=== PATIENT | male | born 1945 | race Caucasian/White ===

== ENCOUNTER 2017-12-07 20:55 | Inpatient (IN) | payer OTHER ==
[2017-12-07] MEDS ORDERED: ACETAMINOPHEN 500 MG TAB PO ONE (21:01)
--- NOTE | 2017-12-07 21:54 | EDPHY ---
H & P Stated Complaint: cough since nov. today with fever & cough Time Seen by Provider: 12/07/17 21:53 HPI/ROS: Chief Complaint: Cough, fever HPI: 72-year-old male has been having a cough for the last 2 months which has been associated with fatigue and is also complaining of a 20 lb weight loss. He is associating this with his reflux symptoms which have been waking him up. He is primarily having the cough worse in the morning when he wakes up is bringing up yellowish sputum and occasional streaks of blood only 1st thing in the morning. He also has sick for episode of coughing in the afternoon. No associated shortness of breath. No chest pain. No nausea or vomiting. Patient states for the last day he started having fevers at home. No nausea or vomiting. Does not have a history of similar episodes. Is a former smoker and but quit 10 years ago. No chest pain. No abdominal pain. Has not followed up with primary care physician. ROS: 10 point Review of Systems is negative except as noted in the HPI. PMH: Denies Social History: Former smoking, no alcohol, occasional edible marijuana Family History: non-contributory Physical Exam: Gen: Awake, Alert, No Distress HEENT: Nose: no rhinorrhea Eyes: PERRLA, EOMI Mouth: Moist mucosa Neck: Supple, no JVD Chest: nontender, lungs clear to auscultation Heart: S1, S2 normal, no murmur Abd: Soft, non-tender, no guarding Back: no CVA tenderness, no midline tenderness Ext: no edema, non-tender Skin: no rash Neuro: CN II-XII intact, Sensation grossly intact, Strength 5/5 in bilateral upper and lower extremities - Personal History Current Tetanus/Diphtheria Vaccine: Unsure Current Tetanus Diphtheria and Acellular Pertussis (TDAP): Unsure - Medical/Surgical History Hx Asthma: No Hx Chronic Respiratory Disease: No Hx Diabetes: No Hx Cardiac Disease: No Hx Renal Disease: No Hx Cirrhosis: No Hx Alcoholism: No Hx HIV/AIDS: No Hx Splenectomy or Spleen Trauma: No - Social History Smoking Status: Former smoker Constitutional: Initial Vital Signs Temperature (C) 37.8 C 12/07/17 20:58 Heart Rate 122 H 12/07/17 20:58 Respiratory Rate 16 12/07/17 20:58 Blood Pressure 131/97 H 12/07/17 20:58 O2 Sat (%) 91 L 12/07/17 20:58 O2 Delivery Mode Room Air O2 (L/minute) 2 Allergies/Adverse Reactions: No Known Allergies Allergy (Unverified 12/07/17 21:00) Medical Decision Making - Diagnostics Imaging Results: Imaging Impressions Chest X-Ray 12/07/17 21:33 Impression: Large right suprahilar mass with postobstructive atelectasis/ pneumonia. Imaging: I viewed and interpreted images myself ED Course/Re-evaluation: Chest x-ray shows a large right perihilar mass. Given his history this is very concerning for the likelihood of cancer. He also has a postobstructive pneumonia. I have ordered ceftriaxone and azithromycin. Is satting at 91%. He is not tachypneic. I have discussed with Dr. Barba, hospitalist. He will admit to his service for further care. Will obtain a CT scan of his chest to evaluate his mass. - Data Points Laboratory Results: Laboratory Results 12/07/17 21:54 12/07/17 21:54 12/07/17 12/07/17 21:54 21:54 WBC 12.32 10^3/uL H 10^3/uL (3.80-9.50) RBC 4.84 10^6/uL 10^6/uL (4.40-6.38) Hgb 14.4 g/dL g/dL (13.7-17.5) Hct 42.3 % % (40.0-51.0) MCV 87.4 fL fL (81.5-99.8) MCH 29.8 pg pg (27.9-34.1) MCHC 34.0 g/dL g/dL (32.4-36.7) RDW 13.8 % % (11.5-15.2) Plt Count 339 10^3/uL 10^3/uL (150-400) MPV 9.6 fL fL (8.7-11.7) Neut % (Auto) 77.6 % H % (39.3-74.2) Lymph % (Auto) 14.0 % L % (15.0-45.0) [place] % (Auto) 7.5 % % (4.5-13.0) Eos % (Auto) 0.1 % L % (0.6-7.6) Baso % (Auto) 0.4 % % (0.3-1.7) Nucleat RBC Rel Count 0.0 % % (0.0-0.2) Absolute Neuts (auto) 9.57 10^3/uL H 10^3/uL (1.70-6.50) Absolute Lymphs (auto) 1.72 10^3/uL 10^3/uL (1.00-3.00) Absolute Monos (auto) 0.92 10^3/uL H 10^3/uL (0.30-0.80) Absolute Eos (auto) 0.01 10^3/uL L 10^3/uL (0.03-0.40) Absolute Basos (auto) 0.05 10^3/uL 10^3/uL (0.02-0.10) Absolute Nucleated RBC 0.00 10^3/uL 10^3/uL (0-0.01) Immature Gran % 0.4 % % (0.0-1.1) Immature Gran # 0.05 10^3/uL 10^3/uL (0.00-0.10) Sodium 134 mEq/L mEq/L (134-144) Potassium 3.9 mEq/L mEq/L (3.5-5.2) Chloride 103 mEq/L mEq/L (97-110) Carbon Dioxide 21 mEq/l L mEq/l (22-31) Anion Gap 10 mEq/L mEq/L (8-16) BUN 9 mg/dL mg/dL (7-23) Creatinine 1.0 mg/dL mg/dL (0.7-1.3) Estimated GFR > 60 Glucose 104 mg/dL H mg/dL (70-100) Calcium 9.6 mg/dL mg/dL (8.5-10.4) Medications Given: Discontinued Medications Acetaminophen (Tylenol) 1,000 mg PO EDNOW ONE Stop: 12/07/17 21:02 Last Admin: 12/07/17 21:03 Dose: 1,000 mg Sodium Chloride (Ns) 1,000 mls @ 0 mls/hr IV ONCE ONE; Wide Open PRN Reason: Protocol Stop: 12/07/17 22:07 Last Admin: 12/07/17 22:16 Dose: 1,000 mls Departure - Departure Disposition: [facility] Inpatient Acute Clinical Impression: Pneumonia, Mass in chest Condition: Fair Referrals: NONE *PRIMARY CARE P,. [Primary Care Provider] - As per Instructions
[2017-12-07] MEDS ORDERED: NS 1,000 ML IV ONE (22:06)
[2017-12-07 22:16] LABS: PLATELET COUNT 339 10^3/uL (150-400)
[2017-12-07] MEDS ORDERED: AZITHROMYCIN 250 MG TAB PO ONE (22:39)
[2017-12-07] MEDS ORDERED: IOPAMIDOL (ISOVUE-300) 100 ML BTL ONE (22:44)
[2017-12-07] MEDS ORDERED: ACETAMINOPHEN 325 MG TAB PO PRN (22:54)
[2017-12-07] MEDS ORDERED: ONDANSETRON DISINTEGRATING 4 MG TAB PO PRN (22:54)
[2017-12-07] MEDS ORDERED: ONDANSETRON 4 MG/2 ML VIAL IVP PRN (22:54)
[2017-12-07] MEDS ORDERED: ALBUTEROL 3 ML DEYVIAL IH PRN (22:54)
[2017-12-07] MEDS ORDERED: oxyCODONE IR 5 MG TAB PO PRN (22:54)
--- NOTE | 2017-12-08 04:48 | PDGENHP ---
History and Physical - Chief Complaint Cough - History of Present Illness 72 yo M w/ 25+ year hx of tobacco use presents with weight loss, night sweats, hemoptysis, and fatigue. Patient has been experiencing this constellation of symptoms for about 3 months. He reports losing about 20 lbs in the last 3 months. He finally came to the ED when his coughing became very severe and began to be productive of blood as well. Evaluation in the ED revealed a large R -sided pulmonary mass with likely post-obstructive pneumonia. He was admitted for treatment and further diagnostic work-up. History Information - Allergies/Home Medication List Allergies/Adverse Reactions: No Known Allergies Allergy (Unverified 12/07/17 21:00) I have personally reviewed and updated: family history, medical history - Past Medical History no pertinent PMH - Surgical History Reports: no pertinent surgical hx - Family History Additional family history: Asked, denies - Social History Smoking Status: Former smoker Review of Systems Review of Systems: ROS: 10pt was reviewed & negative except for what was stated in HPI & below Physical Exam Physical Exam: Temp Pulse Resp BP Pulse Ox 36.8 C 100 18 122/62 H 92 12/08/17 03:14 12/08/17 03:14 12/08/17 03:14 12/08/17 03:14 12/08/17 03:14 O2 (L/minute) 3 Constitutional: no apparent distress, not in pain Eyes: PERRL, EOMI Ears, Nose, Mouth, Throat: moist mucous membranes, no oral mucosal ulcers Cardiovascular: regular rate and rhythym, no murmur, rub, or gallop Respiratory: no respiratory distress, rhonchi (R middle/upper lobe) Gastrointestinal: normoactive bowel sounds, soft, non-tender abdomen Skin: warm, normal color Musculoskeletal: full muscle strength, no muscle tenderness Neurologic: AAOx3, CN II-XII Intact Psychiatric: interacting appropriately, not anxious Lab Data & Imaging Review 12/07/17 21:54 12/07/17 21:54 WBC 12.32 10^3/uL (3.80-9.50) H 12/07/17 21:54 RBC 4.84 10^6/uL (4.40-6.38) 12/07/17 21:54 Hgb 14.4 g/dL (13.7-17.5) 12/07/17 21:54 Hct 42.3 % (40.0-51.0) 12/07/17 21:54 MCV 87.4 fL (81.5-99.8) 12/07/17 21:54 MCH 29.8 pg (27.9-34.1) 12/07/17 21:54 MCHC 34.0 g/dL (32.4-36.7) 12/07/17 21:54 RDW 13.8 % (11.5-15.2) 12/07/17 21:54 Plt Count 339 10^3/uL (150-400) 12/07/17 21:54 MPV 9.6 fL (8.7-11.7) 12/07/17 21:54 Neut % (Auto) 77.6 % (39.3-74.2) H 12/07/17 21:54 Lymph % (Auto) 14.0 % (15.0-45.0) L 12/07/17 21:54 [place] % (Auto) 7.5 % (4.5-13.0) 12/07/17 21:54 Eos % (Auto) 0.1 % (0.6-7.6) L 12/07/17 21:54 Baso % (Auto) 0.4 % (0.3-1.7) 12/07/17 21:54 Nucleat RBC Rel Count 0.0 % (0.0-0.2) 12/07/17 21:54 Absolute Neuts (auto) 9.57 10^3/uL (1.70-6.50) H 12/07/17 21:54 Absolute Lymphs (auto) 1.72 10^3/uL (1.00-3.00) 12/07/17 21:54 Absolute Monos (auto) 0.92 10^3/uL (0.30-0.80) H 12/07/17 21:54 Absolute Eos (auto) 0.01 10^3/uL (0.03-0.40) L 12/07/17 21:54 Absolute Basos (auto) 0.05 10^3/uL (0.02-0.10) 12/07/17 21:54 Absolute Nucleated RBC 0.00 10^3/uL (0-0.01) 12/07/17 21:54 Immature Gran % 0.4 % (0.0-1.1) 12/07/17 21:54 Immature Gran # 0.05 10^3/uL (0.00-0.10) 12/07/17 21:54 Sodium 134 mEq/L (134-144) 12/07/17 21:54 Potassium 3.9 mEq/L (3.5-5.2) 12/07/17 21:54 Chloride 103 mEq/L (97-110) 12/07/17 21:54 Carbon Dioxide 21 mEq/l (22-31) L 12/07/17 21:54 Anion Gap 10 mEq/L (8-16) 12/07/17 21:54 BUN 9 mg/dL (7-23) 12/07/17 21:54 Creatinine 1.0 mg/dL (0.7-1.3) 12/07/17 21:54 Estimated GFR > 60 12/07/17 21:54 Glucose 104 mg/dL (70-100) H 12/07/17 21:54 Calcium 9.6 mg/dL (8.5-10.4) 12/07/17 21:54 Imaging Review: Imaging Impressions Chest X-Ray 12/07/17 21:33 Impression: Large right suprahilar mass with postobstructive atelectasis/ pneumonia. Chest CT 12/07/17 22:42 Impression: 1. Large central right hilar tumor and adenopathy causing occlusions and severe stenoses of bronchi, pulmonary artery, pulmonary vein, superior vena cava, and azygos vein. 2. Postobstructive atelectasis/pneumonitis involving much of the right upper lobe. Assessment & Plan Assessment: 72 yo M w/ significant tobacco hx presents with lung mass and likely pneumonia. Plan: 1. Lung mass - Large central right hilar tumor and adenopathy causing occlusions and severe stenoses of bronchi, pulmonary artery, pulmonary vein, superior vena cava, and azygos vein. Noting symptoms of weight loss, night sweats, and hemoptysis this most likely represents malignancy in the setting of significant tobacco history. - Will consult oncology and IR to consider IR biopsy vs. endobronchial biopsy from Pulm and additional staging measures - Maintain NPO in case biopsy can be done today 2. Postobstructive pneumonia - Postobstructive atelectasis/pneumonitis involving much of the right upper lobe described on CT. No evidence of sepsis physiology at this time. - CTX/Azithro for CAP coverage - Blood cultures ordered 3. AHRF - 2/2 malignancy and pneumonia. IS, wean O2 as able. Diet - NPO pending possible biopsy Code - Full Ppx - SCDs for now noting possible biopsy, indicated for LMWH thereafter noting likely malignancy Dispo - Admit to observation status
[2017-12-08 05:23] LABS: PLATELET COUNT 290 10^3/uL (150-400)
[2017-12-08] MEDS ORDERED: AZITHROMYCIN IV 250 MG in D5W 250 ML IV SCH (09:00)
[2017-12-08] MEDS: AZITHROMYCIN 250 MG TAB PO SCH (09:32)
--- NOTE | 2017-12-08 14:49 | ASMTCMCOM ---
CM Note CM Note Notes: Pt admitted with PNA and chest mass. Long hx of smoking. Pt has Medicare Part A only. Discussed this with him and also called his son Willian [phone] who is his MDPOA. Provided Medicare info re late enrollment for Part B benefits and encouraged him to talk with his daughter (a agricultural extension officer) and his son. Pt never signed up for Part B or D and will incur penalties when he does. He has limited income and is a which son will pursue. [employer] saw pt and he is over income for Medicaid. Pt to have bx. CM will follow for any d/c needs. Date Signed: 12/08/2017 02:48 PM Electronically Signed By:NOÉ Yuen
--- NOTE | 2017-12-08 15:58 | HOSPPROG ---
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
--- NOTE | 2017-12-08 16:04 | HOSPPROG ---
Hospitalist Progress Note Assessment/Plan: DIAGNOSES: -acute hypoxemic respiratory failure, multifactorial -suspect postobstructive pneumonia as cause of fever and worsening respiratory symptoms -large right perihilar mass with adenopathy, with compression of airways and central vascular structures contributing to his respiratory symptoms -strongly suspect primary lung malignancy in this smoker -suspect likely also has COPD which could be contributing to his respiratory symptoms PLANS: -continue current antibiotics -I reviewed in detail with Dr. Sam Al, and he has contacted Dr. Nadir Alvarenga. Dr. Alvarenga will assess the patient and consider bronchoscopic assessment which I think would be very successful in helpful for this patient in terms of getting to diagnosis. -bronchodilators as needed -further planning for treatment once we have tissue samples and results; this could possibly be a small cell carcinoma as it is central -discuss all the above with the patient and his at the bedside in great detail, answered all their questions to the stent can at this time SUBJECTIVE: Patient feels notably better with less shortness of breath and less cough but he has been lying in bed the whole day. 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: Exam: alert oriented skin warm dry color ok resps not labored lungs diminished but otherwise clear BSs heart regular abd soft nondistended nontender, bowel sounds present limbs warm, no edema iv site ok Objective: Vital Signs Temp Pulse Resp BP Pulse Ox 36.9 C 95 18 111/65 96 12/08/17 15:35 12/08/17 15:35 12/08/17 15:35 12/08/17 15:35 12/08/17 15:35 Laboratory Results 12/08/17 05:00 12/08/17 05:00 12/07/17 12/08/17 12/09/17 06:59 06:59 06:59 Intake Total 1999 Balance 1999 - Time Spent With Patient Time Spent with Patient: greater than 35 minutes Time Spent with Patient: Greater than 35 minutes spent on this patients care, greater than 50% of time spent counseling, educating, and coordinating care regarding the above mentioned plan. ICD10 Worksheet Patient Problems: Problems Problem Status Onset Mass in chest Acute Pneumonia Acute
--- NOTE | 2017-12-08 17:47 | GCON ---
[f rep st] CONSULTATION MEDICAL ONCOLOGY CONSULTATION REPORT REASON FOR CONSULTATION: This is a 72-year-old male just admitted to [facility] toda y with a right suprahilar mass, consistent with a malignancy. He has no history of malignancy prior t o this admission. HISTORY OF PRESENT ILLNESS: The patient is a 72-year-old male with a long history of tobacco use, wh o has noted 3 months of cough, night sweats, sputum production, and more recently, blood-tinged sputu m with pleuritic-type chest pain with deep inspiration. He came to the emergency department earlier t betty, and based upon a chest x-ray, followed by CT scan, he has now been admitted for further workup for what appears to be a presumptive primary intrathoracic malignancy, primary bronchogenic lung carc inoma versus lymphoma. PAST MEDICAL HISTORY: Patient reports up until about 3 months ago, he was in his usual state of heal th. He has no prior medical history. MEDICATIONS: He is on no chronic medications. FAMILY HISTORY: Noncontributory. PRIOR SURGICAL HISTORY: Noncontributory. ALLERGIES: None known. SOCIAL HISTORY: The patient has lived in [place] since 1968. 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 He has no known occupational exposures. Tobacco use: Noted above. Alcohol intake: Not significant. He i s not . He spends time with his girlfriend, who lives in the [place] area. He lives in [place] himself. He reports ongoing fatigue, malaise, and by review of systems, night sweats, as noted above. REVIEW OF SYSTEMS: CONSTITUTIONAL: See above. TILE SPRAYER: No active focal symptoms. RESPIRATORY: See above. CARDIAC: Noncontributory. GI: Noncontributory. : Noncontributory. INFECTIOUS: See above. CUTANEOUS : Noncontributory. SKELETAL: Noncontributory. HEMATOLOGIC: Noncontributory. ENDOCRINE: Noncontributor y. EXAM: GENERAL: This is a pleasant late middle-aged white male, in no acute distress. He was seen fla t in bed, comfortable, and with his girlfriend at the bedside. He is alert, conversant, and cognitive ly intact. VITAL SIGNS: Stable. HEENT: Exam shows no facial asymmetry. Sclerae anicteric. Cranial ner ves intact. No oral lesions. PERRLA, EOMI. NECK: Without lymphadenopathy. LUNGS: Lung love are rela tively clear. No consolidation or adventitious sounds. CARDIAC: Exam shows RSR. No extra heart sounds . PMI not displaced. ABDOMEN: Soft, without mass, tenderness, or HSM. EXTREMITIES: No peripheral lex a. Reflexes normal. SKIN: Intact. IMAGING: CT scan of the chest, performed today, shows a large central right hilar tumor and adenopat hy with occlusion and severe stenosis of right-sided bronchus, pulmonary artery, pulmonary vein, supe rior vena cava, and azygos vein. There is a post-obstructive atelectasis and pneumonitis involving a portion of the right upper lobe. LAB DATA: White count 14.12, hemoglobin 13.2, platelet count 290. Sodium 138, BUN 8, creatinine 0.8, glucose 100, calcium 8.8, CO2 21. IMPRESSION: Right suprahilar and hilar mass with obstructive right upper lobe pneumonitis in a patie nt symptomatic and with history of tobacco usage. I am suspicious that this patient has a primary bronchogenic lung neoplasm or lymphoma, and based upo n imaging, I suggest Pulmonary consultation to consider bronchoscopy for transbronchial and endobronc hial biopsy and cytology. I have reviewed this with the patient today and his girlfriend, indicating our clinical suspicion of a primary malignancy. We will order additional laboratory studies and MRI of brain to continue staging workup. I will contact Pulmonary Service for a pulmonary consult. Our service will follow as an inpatient and an outpatient. Thank you for allowing our service to evaluate this gentleman, and plan to participate in staging wor kup, treatment advice, and treatment administration. /[id number]/MODL
--- NOTE | 2017-12-08 18:48 | GCON ---
[f rep st] CONSULTATION PULMONARY CONSULTATION DATE OF CONSULTATION: 12/08/2017 REASON FOR CONSULTATION: Lung mass. HISTORY: The patient is a very pleasant 72-year-old gentleman who has previously been healthy. He i s a long-time smoker, having smoked from the age of approximately 15 to 60, one pack of cigarettes pe r day on average. Over the last 3 months he has had increasing pulmonary symptoms associated with co ugh, mucus, hemoptysis, chest pain and tightness, progressive weakness and fevers, chills, and sweats . He presented to the hospital yesterday secondary to coughing episodes that resulted in lightheaded ness. Workup has revealed a large right-sided mass with bronchial compression of the right mainstem bronchus. A postobstructive infiltrate appears to be present. He has largely been healthy in the past. He has avoided physicians. He is on no medications, has no known medical problems. PAST MEDICAL HISTORY: Negative, as outlined above. SOCIAL HISTORY: The patient has not smoked for 10 to 15 years. Significant alcohol is negative. He has a son who is an oncologic surgeon in the . He is the patient's medical power of attorne y. 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 FAMILY HISTORY: Noncontributory/negative. REVIEW OF SYSTEMS: 10-point review of systems is negative except as outlined above. He denies previ ously known pulmonary disease, cardiac disease, thromboembolic disease, kidney problems, etc. PHYSICAL EXAMINATION: GENERAL: The patient is lying relatively comfortably in bed, on his right zion e. He appears weak. VITAL SIGNS: Blood pressure is 111/65, heart rate 95 and regular, on 3 L satur ations are 98%, respiratory rate is 18, he is afebrile. HEENT: Unremarkable for lymphadenopathy or thyromegaly. LYMPHATIC: There are no cervical nodes, no subclavicular nodes present. CHEST: Clear . There are no rhonchi currently. Breath sounds are somewhat coarse on the right side. However, th ere is no danial stridor, no wheezes and no significant rales. HEART: Regular in rate and rhythm. T here is a soft systolic murmur. No gallops. ABDOMEN: Soft, nontender. There is no obvious organom egaly. EXTREMITIES: Without edema, cords, or tenderness. NEUROLOGIC: Intact. RADIOLOGIC STUDIES: As outlined above. His CT scan of the chest shows a right hilar tumor that is q uite large, extending superiorly. There is associated mediastinal and hilar adenopathy with compress ion of the right mainstem bronchi and distal proximal bronchi. There is also compression of the pulm onary artery vein and superior vena cava. There is postobstructive atelectasis and infiltrate relate d to the right upper lobe. LABORATORY: White blood cell count is 14,000, hematocrit 40. Platelets are normal. There is a shif t to the left. Basic metabolic panel is within normal limits. ASSESSMENT: 1. Large right-sided perihilar lung mass, as described above. This is certainly malignant and compr essing the right mainstem bronchi and more distal proximal bronchial segments. Postobstructive pneum onia appears to be present. Symptoms have been present for at least 3 months and progressive, both l ocal pulmonary symptoms, as well as constitutional symptoms. A small cell carcinoma is certainly pos sible, but other primary lung malignancies related to smoking are also in the differential. A tissue diagnosis is needed, and bronchoscopy will be performed tomorrow. 2. Postobstructive pneumonia. 3. History of tobacco abuse in the past. PLAN AND RECOMMENDATIONS: Bronchoscopy will be performed tomorrow. PT and PTT will be obtained in t he a.m. Clear liquid breakfast will be allowed. He will be made n.p.o. after this. Bronchoscopy wi ll be performed in the mid afternoon. Appropriate samples will be obtained. Lovenox will be held. Antibiotics will be continued. Further plans and recommendations will be made based on the results of the bronchoscopy and his progr ess over the next 24 to 48 hours. /[id number]/MODL
[2017-12-08] MEDS: ZOLPIDEM TARTRATE 5 MG TAB PO PRN (20:57)
[2017-12-09] MEDS: AZITHROMYCIN 250 MG TAB PO SCH (09:23)
[2017-12-09] MEDS ORDERED: GADOBUTROL 10 ML VIAL IVP ONE (12:06)
--- NOTE | 2017-12-09 13:25 | SOAPPROG ---
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 Plans for Bronchoscopy this afternoon noted and D/W patient. He acknowledged that we expect to confirm malignancy with W/U. Await official MRI brain findings. May have tissue diagnosis in next 1-2 days. Plan: See above discussion. Bronchoscopy this afternoon. 12/09/17 13:25 Subjective: Has had no more hemoptysis with improved resp. status. Slept well. No GI distress with meals last PM. Objective: Afebrile, VSS as noted here: in NAD, alert and talkative, flat in bed without resp. distress HEENT- anicteric, no oral lesions Neck- supple Chest- clear anteriorly/posteriorly CVS- RSR, no extra HS ABD- soft, NT no mass or HSM EXT- no edema Imaging: MRI brain done today- to my review no mets/bleed/mass Vital Signs Temp Pulse Resp BP Pulse Ox 37.1 C 96 16 92/66 L 97 12/09/17 09:41 12/09/17 09:41 12/09/17 09:41 12/09/17 09:41 12/09/17 09:41 12/08/17 12/09/17 12/10/17 05:59 05:59 05:59 Intake Total 800 Balance 800 ICD10 Worksheet Patient Problems: Problems Problem Status Onset Mass in chest Acute Pneumonia Acute
--- NOTE | 2017-12-09 13:35 | PDMN ---
Medical Necessity Medical necessity: : change to IP; los>2mn for acute hypoxemic resp failure, pna , large R perihilar mass w/ adenopathy, and likely COPD; requires continued abx , pulm consult for possible bronch, and initiation of IP chemo; per order and progress note 12/08/17
[2017-12-09] MEDS ORDERED: ALBUTEROL 3 ML DEYVIAL ONE (13:46)
[2017-12-09] MEDS ORDERED: LIDOCAINE 1% 300 MG/30 ML SDV ONE (13:47)
[2017-12-09] MEDS ORDERED: LIDOCAINE 2% JELLY 5 ML TUBE ONE (13:47)
[2017-12-09] MEDS ORDERED: LIDOCAINE HCL 4% TOPICAL SOLN 50ML ONE (13:47)
[2017-12-09] MEDS ORDERED: MIDAZOLAM 2 MG/2 ML VIAL ONE (14:13)
[2017-12-09] MEDS ORDERED: fentaNYL 100 MCG/2 ML INJ ONE ×2 (14:14→14:54)
[2017-12-09] MEDS ORDERED: BENZOCAINE UNIT DOSE SPRAY HURRICAINE MM ONE (14:31)
[2017-12-09] MEDS ORDERED: ALBUTEROL 3 ML DEYVIAL IH ONE (14:40)
--- NOTE | 2017-12-09 14:42 | PDPROPOC ---
Sedation Plan of Care Sedation Plan of Care: vital signs stable, mental status noted, patient educated of risks, benefits, alternatives, patient can tolerate sedation ASA Classification: ASA 2 Planned drugs: fentanyl, midazolam Mallampati Score: Class 2 Mallampati Reference Image: Patient passed 3-3-2 rule?: Yes
[2017-12-09] MEDS ORDERED: BENZOCAINE 57 G CAN HURRICAINE MM ONE (14:45)
[2017-12-09] MEDS ORDERED: LIDOCAINE HCL 4% TOPICAL SOLN 50ML TP ONE (14:45)
[2017-12-09] MEDS ORDERED: LIDOCAINE 2% JELLY 5 ML TUBE TP ONE (14:45)
[2017-12-09] MEDS ORDERED: LIDOCAINE 1% 300 MG/30 ML SDV MISC ONE (14:45)
[2017-12-09] MEDS ORDERED: MIDAZOLAM 2 MG/2 ML VIAL IVP ONE (14:50)
[2017-12-09] MEDS ORDERED: fentaNYL 100 MCG/2 ML INJ IVP ONE (14:50)
--- NOTE | 2017-12-09 17:50 | HOSPPROG ---
Hospitalist Progress Note Assessment/Plan: DIAGNOSES: -acute hypoxemic respiratory failure, multifactorial -suspect postobstructive pneumonia as cause of fever and at least part of his worsening respiratory symptoms -large right perihilar mass with adenopathy, with compression of airways and central vascular structures contributing to his respiratory symptoms -strongly suspect primary lung malignancy in this smoker -sinus tachycardia, unclear why he is so tachycardic at this time the does not appear to be septic -I reviewed his CT images again today and did not see any evidence of pulmonary embolism, but wonder if his mass is causing enough pulmonary hemodynamic and blood flow issues to contribute to tachycardia and dyspnea as it is very large in probably compressing central vessels by appearance -suspect likely also has COPD which could be contributing to his respiratory symptoms PLANS: -continue current antibiotics -bronchodilators as needed -bronchoscopy today with Dr. Alvarenga -further planning for treatment once we have tissue samples and results; this could possibly be a small cell carcinoma as it is central SUBJECTIVE: Patient feels notably better with less shortness of breath and less cough but he has been lying in bed the whole day. 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
[2017-12-10] MEDS: ZOLPIDEM TARTRATE 5 MG TAB PO PRN ×2 (00:04→20:59)
--- NOTE | 2017-12-10 04:56 | GPN ---
[f rep st] PROCEDURE NOTE PROCEDURE PERFORMED: Bronchoscopy. INDICATION: Large right perihilar mass with evidence of possible obstructive pneumonia. PROCEDURE NOTE: The procedure was performed in the endoscopy unit. Informed consent was obtained fr om the patient. Appropriate time-out was performed. N95 masks were worn. Topical anesthesia of the oropharynx included a small amount of Hurricaine spray and approximately 5 cc of 1% lidocaine. Intr avenous conscious sedation included 125 mcg fentanyl and 4 mg of Versed. Approximately 20 mL of 1% l idocaine was used for topical anesthesia of the tracheobronchial tree. Epinephrine, 1:10,000, approx imately 8 cc was given incrementally throughout the procedure to prevent or treat mild bleeding/oozin g. The fiberoptic bronchoscope was passed via bite block orally into the larynx. The vocal cords were i dentified. They appeared to move normally with cough and phonation. The bronchoscope was then advan cindy into the trachea and into the lower tracheobronchial tree bilaterally. The airways were generall y erythematous. The left side was normal. The right side was distinctly abnormal with narrowing to the point of almost total occlusion of the right upper lobe bronchus. Abnormal tissue was present in this location. The bronchus intermedius was also narrowed but the lower lobe appeared normal as did the middle lobe. Abnormal mucosa with erythema and edema extended down into the bronchus intermediu s. Washes, brushes and biopsies were taken from the right upper lobe. The patient tolerated procedure well. There were no complications. Vital signs and oxygen saturatio ns throughout the procedure remained stable. The patient was on supplemental oxygen throughout. IMPRESSION: Abnormal tissue almost totally occluding the right upper lobe consistent with malignancy . Appropriate samples were obtained. Abnormal findings continued down and involved the bronchus int ermedius. The lower trachea was also erythematous and edematous. /[id number]/MODL
[2017-12-10] MEDS: AZITHROMYCIN 250 MG TAB PO SCH (09:56)
--- NOTE | 2017-12-10 15:51 | ASMTCMCOM ---
CM Note CM Note Notes: Pt has a lung mass suspicious for ca, which was biopsied yesterday. [facility] It is unclearif pt will have other DC needs. CM to follow, Date Signed: 12/10/2017 03:51 PM Electronically Signed By:Indigo Mandujano LCSW
--- NOTE | 2017-12-10 18:29 | HOSPPROG ---
Hospitalist Progress Note Assessment/Plan: DIAGNOSES: -acute hypoxemic respiratory failure, multifactorial -suspect postobstructive pneumonia as cause of fever and at least part of his worsening respiratory symptoms -large right perihilar mass with adenopathy, with compression of airways and central vascular structures contributing to his respiratory symptoms -malignancy confirmed on bronchoscopy with pathology pending, appears to likely be small cell cancer -sinus tachycardia, unclear why he is so tachycardic at this time the does not appear to be septic -I reviewed his CT images and did not see any evidence of pulmonary embolism , but wonder if his mass is causing enough pulmonary hemodynamic and blood flow issues to contribute to tachycardia and dyspnea as it is very large in probably compressing central vessels by appearance -suspect likely also has COPD which could be contributing to his respiratory symptoms PLANS: -continue current antibiotics -bronchodilators as needed -further planning for treatment once we have tissue samples and results; this could possibly be a small cell carcinoma as it is central I reviewed in detail today with Dr. Al and Dr. Alvarenga and the pathologist's. Total visit time with care coordination greater than 35 min SUBJECTIVE: Patient feels notably better with less shortness of breath and less cough but he has been lying in bed the whole day. 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 Nadir Alvarenga, there was a very large endobronchial lesion which was biopsied. I reviewed the preliminary report from the pathologist with the 2 pathologist reading his study. There is some crush artifact but it appears likely that this will be a small cell cancer which we anticipated. Special stains are pending and are expected to confirm the does or does not have small cell disease. Objective: Vital Signs Temp Pulse Resp BP Pulse Ox 36.8 C 93 14 111/63 92 12/10/17 16:57 12/10/17 16:57 12/10/17 16:57 12/10/17 16:57 12/10/17 16:57 Microbiology 12/09/17 14:50 Gram Stain - Final Lung Right Upper Lobe - Bronchial Washings Laboratory Results 12/10/17 05:07 12/10/17 05:07 12/09/17 12/10/17 12/11/17 06:59 06:59 06:59 Intake Total 800 1200 300 Balance 800 1200 300 - Time Spent With Patient Time Spent with Patient: greater than 35 minutes Time Spent with Patient: Greater than 35 minutes spent on this patients care, greater than 50% of time spent counseling, educating, and coordinating care regarding the above mentioned plan. ICD10 Worksheet Patient Problems: Problems Problem Status Onset Mass in chest Acute Pneumonia Acute
[2017-12-11 04:33] VITALS: RESP 16
[2017-12-11 08:43] VITALS: BP 103/70; PULSE 89; TEMP 98.1; O2SAT 94
[2017-12-11] MEDS: AZITHROMYCIN 250 MG TAB PO SCH (08:54)
--- NOTE | 2017-12-11 14:50 | SOAPPROG ---
SOAP Progress Note Assessment/Plan: Assessment: 1.) Small Cell Lung Carcinoma, presenting with R suprahilar mass with post obstructive consolidation and mild SVC symptoms in shelter tobacco user. I discussed the diagnosis and gave Collin written information about this diagnosis and first line Tx with the standard regimen: Carboplatin, Day 1 and Etoposide Days 1-3 every 1 days. Plan: 1.) SCLC: I have provided the diagnosis, written literature about SCLC from [facility] and advised tx with Carboplatin/Etoposide in a standard 21 day regimen. 2.) Collin states he wants to go home to attend to other issues and will delay Tx until next week. I have provided him with Dr. Sunny Campoverde's card to give him the option of Tx here, where his girlfriend lives or in [place], with Dr. Tommy Florian's name and office phone # for Tx at the [facility] office if he chooses Tx. at that location. 3.) Anticipate discharge today. See above follow up arrangements. 12/11/17 14:43 Subjective: Still with ongoing cough. No other distressing sx. Feels well enough to go home. Objective: Pt sitting up in chair, looks comfortable and in no Resp. Distress in conversation. HEENT- anicteric, no oral lesions Neck- supple, no JVD Chest- minimal rhonchi RUL CVS- RSR, no extra HS ABD- soft, NT, BS+ EXT- no edema, skin intact Labs: RUL biopsy + for Small Cell Lung Cancer Vital Signs Temp Pulse Resp BP Pulse Ox 36.7 C 89 16 103/70 94 12/11/17 08:43 12/11/17 08:43 12/11/17 08:43 12/11/17 08:43 12/11/17 08:43 Microbiology 12/09/17 14:50 Gram Stain - Final Lung Right Upper Lobe - Bronchial Washings Bronchial Washings Culture - Final Laboratory Results 12/10/17 05:07 12/10/17 05:07 12/10/17 12/11/17 12/12/17 05:59 05:59 05:59 Intake Total 1200 800 Balance 1200 800 ICD10 Worksheet Patient Problems: Problems Problem Status Onset Mass in chest Acute Pneumonia Acute
--- NOTE | 2017-12-11 16:42 | ASDISCHSUM ---
Discharge Information Plan Status: Medically Cleared to Leave: Discharge Date: CM D/C Disposition: ADT D/C Disposition:Home, Routine, Self-Care Projected Discharge Date: Transportation at D/C: Discharge Delay Reason: Follow-Up Date: Discharge Slot: Final Diagnosis: Placement Information Patient Contact Information Contact Name:PEDROVIVIENNE Relationship:Friend Address: Work Phone: City: [facility] Phone: State/Zip Code: Email: Financial Information Financial Class: Primary Plan Desc:MEDICARE INPATIENT Primary Plan Number:[id number] Secondary Plan Desc: Secondary Plan Number: Assessment Information [facility] CM Progress Note CM Note CM Note Notes: Pt admitted with PNA and chest mass. Long hx of smoking. Pt has Medicare Part A only. Discussed this with him and also called his son Willian [phone] who is his MDPOA. Provided Medicare info re late enrollment for Part B benefits and encouraged him to talk with his daughter (a rope rider) and his son. Pt never signed up for Part B or D and will incur penalties when he does. He has limited income and is a which son will pursue. [employer] saw pt and he is over income for Medicaid. Pt to have bx. CM will follow for any d/c needs. Date Signed: 12/08/2017 02:48 PM Electronically Signed By:NOÉ Yuen [facility] CM Progress Note CM Note CM Note Notes: Pt has a lung mass suspicious for ca, which was biopsied yesterday. [facility] It is unclearif pt will have other DC needs. CM to follow, Date Signed: 12/10/2017 03:51 PM Electronically Signed By:Indigo Mandujano LCSW [facility] CM Progress Note CM Note CM Note Notes: Pt's pathology came back as small cell lung cancer. Dr Al is recommending standard treatment. Dr Al [facility] [place] [facility] Dr Florian in [place]. Pt has no DC needs. Date Signed: 12/11/2017 04:41 PM Electronically Signed By:Indigo Mandujano LCSW Intervention Information Intervention Type:*Incorrect Registration Date of Service:12/08/2017 10:44 AM Patient Type:Inpatient Staff Member:SARAHY Kurtz Courtney Hours: Discipline: Severity: Comment: Intervention Type:*BANG-Signed Date of Service:12/08/2017 02:08 PM Patient Type:Observation Staff Member:Magy Willard Hours: Discipline: Severity: Comment: Intervention Type:*IM-Signed Date of Service:12/11/2017 03:58 PM Patient Type:Inpatient Staff Member:Magy Willard Hours: Discipline: Severity: Comment:
--- NOTE | 2017-12-11 19:05 | PDDCSUM ---
Discharge Summary Discharge Summary: DISCHARGE DIAGNOSES: -acute hypoxemic respiratory failure, multifactorial -suspect postobstructive pneumonia as cause of fever and at least part of his worsening respiratory symptoms -new diagnosis of small cell lung carcinoma with large right perihilar mass with adenopathy -suspect likely also has COPD which could be contributing to his respiratory symptoms CONSULTANTS: Dr. Sam Alvarenga PROCEDURES: CT scan of chest Bronchoscopy with bronchoscopic by a PC of lung mass HOSPITAL COURSE SUMMARY: This patient presented to the hospital with a few months of gradually worsening dyspnea and cough. He was found to have a large right hilar lung mass with compression of airways and vascular structures and probably some post obstructive pneumonia as well. There is no fever or sepsis. He did have some mild hypoxemic respiratory failure upon arrival. He was treated with antibiotics bronchodilators and steroids and did improve symptomatically here. At this time he is doing quite well on room air and ambulating hallway easily. He did undergo bronchoscopic biopsy of lung mass which is a small cell carcinoma. There was extensive discussion with patient regarding the diagnosis of his small cell cancer, the treatment option of chemotherapy and/or radiation , the lack of a surgical option. There was also extensive discussion of possible palliative options. At this point the patient is undecided about what he will do with treatment. It is recommended that he follow up in Oncology Clinic so he is given information to follow up with either Dr. Sunny Campoverde here in our clinic or with an oncologist at the [facility] near his home in [facility] At this point. Patient is stable for discharge and is going home today. PENDING TEST RESULTS: None MEDICATION CHANGES: Addition of albuterol inhaler Addition of Tessalon Perles as needed for cough FOLLOW-UP PLAN: With either Dr. Campoverde at [facility] here in [place] or with an oncologist at the clinic for that group close to his home in [place] in the next 1-2 weeks Greater than 35 minutes bedside and care coordination time today
== END 2017-12-11 17:14 | disposition home or self-care (01) | DRG 180 ==
LOC: INTOOBSV 22:43 → F1N 12-08 00:12 → OBSVTOIN 12-08 16:16
PROVIDERS: ADMIT Student in an Organized Health Care Education/Training Program; ATTEND Student in an Organized Health Care Education/Training Program
PROC: 0BB48ZX Excision of Right Upper Lobe Bronchus, Via Natural or Artificial Opening Endoscopic, Diagnostic (ICD-10-PCS; principal; 2017-12-09 14:00)
DX: C34.01 Malignant neoplasm of right main bronchus (principal); J18.8 Other pneumonia, unspecified organism; J96.01 Acute respiratory failure with hypoxia; J44.9 Chronic obstructive pulmonary disease, unspecified; Z87.891 Personal history of nicotine dependence
CPT/HCPCS: A9585; G0378; J0171; J0696; J2250; J3010; J7613; Q9967